=== PATIENT | female | born 1965 ===

== ENCOUNTER 2024-09-02 09:18 | Outpatient (CLI) | payer OTHER, SELFPAY ==
[2024-09-03 15:08] LABS: Estradiol Premenol Female 31 pg/mL
[2024-09-03 23:08] LABS: DHEAS 130 ug/dL (19-205)
[2024-09-05 18:00] LABS: Sex Hormone Binding Globulin 47 nmol/L (17-125); Testosterone, Free LC-MS/MS 2.1 pg/mL (0.6-3.8); Testosterone, LC-MS/MS 16 ng/dL (9-55)
[2024-09-06 10:12] LABS: Progesterone, HPLC-MS/MS <0.10 ng/mL
== END 2024-09-02 09:19 | disposition home or self-care (01) ==
PROVIDERS: Visit Provider Family Medicine
DX: N95.1 Menopausal and female climacteric states (principal); E56.9 Vitamin deficiency, unspecified; Z79.890 Hormone replacement therapy
CPT/HCPCS: 36415; 82627; 82670; 84144; 84270; 84402; 84403